=== PATIENT | male | born 1970 | race Caucasian/White ===

== ENCOUNTER 2016-07-29 20:54 | Inpatient (IN) | payer OTHER ==
[~2016-07-29] VITALS: Ht 180.3 cm; Wt 105.2 kg
--- NOTE | ~2016-07-29 | CON ---
PATIENT'S NAME: KAILEY BINGHAM [facility] AGE: 46 Y [address] ROOM: [address] [place], [place] [address] LOCATION: GPCU ADMIT DATE: 07/30/2016 Consultation DISCHARGE DATE: FAMILY PHYSICIAN: Festus Quintana MD ATTENDING PHYSICIAN: SORAYA REYES DATE OF CONSULTATION: 07/30/2016 REFERRING PHYSICIAN: Josh Fontana MD REASON FOR CONSULTATION: Acute diverticulitis with perforation. HISTORY OF PRESENT ILLNESS: Kailey is a 46-year-old male who was admitted to [facility] early this morning under the care of the hospitalist after a CT scan showed evidence of diverticulitis with perforation. The patient states that yesterday morning, he started having pain in the left lower quadrant. He placed a heat pack on this area. The pain became worse and he decided to come into be seen. The patient states that he has a prior history of diverticulitis being noted on a CT scan at the time of the kidney stone diagnosis. He states that he has had prior episodes where he would feel bloated and then the following day had pain and then the next day would seem to get better on its own. He has never gone into the clinic to be evaluated during these episodes and therefore he has never been on antibiotics for diverticulitis. At this time, the patient states that the pain is less if he sits and relaxes. The pain is significantly worse if he tries to get up and move. He states that he did have bowel movement yesterday which he describes as being ropey, but no blood. No bowel movement today. He is not passing any gas today. He states that he still feels bloated. He denies any fevers. The patient denies any history of inflammatory bowel disease. Denies ever having a colonoscopy in the past. PAST MEDICAL HISTORY: ALLERGIES: NONE. MEDICATIONS: 1. Vitamin D 3, 5000 units 2 tablets p.o. daily. 2. Ibuprofen 800 mg p.o. p.r.n. mild pain. 3. Tylenol 650 mg p.o. every 4 hours p.r.n. pain. ILLNESSES: 1. History of kidney stone 2013. 2. History of a heart murmur as a child with no recent issues. PATIENT'S NAME: KAILEY BINGHAM [facility] AGE: 46 Y [address] ROOM: [id number] [place], [place] [address] LOCATION: GPCU ADMIT DATE: 07/30/2016 Consultation DISCHARGE DATE: FAMILY PHYSICIAN: Festus Quintana MD ATTENDING PHYSICIAN: SORAYA REYES OPERATIONS: Right inguinal hernia repair at approximate age of 16. SOCIAL HISTORY: The patient is engaged to be . He lives in [place]. He works at [employer]. He is a nonsmoker. Consumes 2 alcoholic beverages per night. FAMILY HISTORY: Maternal grandmother had colon cancer. Father with leukemia. Sister had cardiac valve replacement. REVIEW OF SYSTEMS: The patient states that he had been doing well with diet and exercise and has lost some weight, but he has gained weight back. He had an upper respiratory infection in May, but has not had any recent problems. No shortness of breath. No cough. No history of asthma. No chest pain or history of any heart problems. He does have issues with heartburn. His bowels have been working normally prior to this. Denies any blood in his stool. Denies any problems urinating. PHYSICAL EXAMINATION: VITAL SIGNS: Temperature was 100.4, blood pressure 144/76, pulse 98, respirations 20. GENERAL: A 46-year-old male who is alert, oriented, pleasant, cooperative, in mild distress. EYES, EARS, NOSE, AND THROAT: Grossly normal. LUNGS: Clear. HEART: Regular, although mild tachycardic while I am in the room with heart rate of about 110. ABDOMEN: Bowel sounds are present. Abdomen is soft and nontender in the right lower quadrant, but very tender in the left lower quadrant with localized peritoneal signs. DIAGNOSTIC DATA: Lab work today; white blood cell count 13.5 compared to 13.9 last night. Hemoglobin is 14.3, hematocrit 41.8, platelets 184. Sodium 138, potassium 3.9, chloride 103, CO2 25, BUN 8, creatinine 1.1, glucose 119, lactate 1.6. LFTs were within normal limits. Urinalysis was within normal limits. Procalcitonin was 0.37. CRP was 9.20. CT scan read by Alvina shows prominent inflammatory changes adjacent to the diverticula within the sigmoid colon. Pneumoperitoneum was present. No evidence for an abscess. Review of CT scan from 2013 did show a focal area of luminal narrowing with adjacent pericolonic inflammatory changes at the PATIENT'S NAME: KAILEY BINGHAM [facility] AGE: 46 Y [address] ROOM: [id number] [place] [id number] LOCATION: GPCU ADMIT DATE: 07/30/2016 Consultation DISCHARGE DATE: FAMILY PHYSICIAN: Festus Quintana MD ATTENDING PHYSICIAN: SORAYA REYES junction between descending colon and sigmoid colon with no complications at that time. ASSESSMENT: A 46-year-old male with perforated diverticulitis with localized peritonitis in the left lower quadrant on IV Cipro and Flagyl. PLAN: I discussed the diagnosis with the patient. I discussed conservative treatment at this time with bowel rest and IV antibiotics. I anticipate that his symptoms should improve within 48-72 hours and if he indeed improves as expected then I would anticipate that he would be able to go home with oral antibiotics at that time. I discussed that if he becomes worse clinically then we may need to proceed with an emergent operation that would include colon resection with colostomy. I discussed the need for colonoscopy in 6-8 weeks to ensure that this is truly as a result of diverticulitis but not anything more concerning like a cancer or colitis. I also briefly discussed potential for elective an operation in the future if he has ongoing issues with diverticulitis. The patient's questions and concerns were addressed. Dr. Fontana will be evaluating the patient momentarily and will review over the CT scan images. He will examine the patient and will be involved in the final assessment and plan. KAYLEE ORTEGA PA-C FOR MD RICCI MEL[place]AR/trey /[id number] d: 07/30/16 08 t: 08/08/16 1742, CONSULTATION REPORT
--- NOTE | ~2016-07-29 | ER ---
PATIENT'S NAME: ZACHERY [facility] AGE: 46 Y [address] ROOM: [place] [id number] LOCATION: GPCU ADMIT DATE: 07/30/2016 ER/Outpatient Report DISCHARGE DATE: FAMILY PHYSICIAN: Festus Quintana MD ATTENDING PHYSICIAN: SORAYA REYES Admission date and time documented in medical record. I saw the patient at 2205 hours. CHIEF COMPLAINT: Left lower quadrant abdominal pain. HISTORY OF PRESENT ILLNESS: The patient is a 46-year-old male, who presented to the emergency room by private vehicle. The patient has had left lower quadrant abdominal pain since 0100 hours today. He has had intermittent sharp pain with spasm, some nausea, but no vomiting. No diarrhea. He has had a couple small stools today. No blood in his stool. No chest pain or shortness of breath. No lightheadedness, dizziness, syncope, or near syncope. No headache, eyes, ears, nose, throat, neck, or spine pain. No fall or trauma. No recent coughs, colds, flus, fever, chills, or sweats. No joint muscle swelling, redness, or pain. No skin eruptions or rash. No history of endocrine problems or neuro changes. He does have some depression and anxiety. He does have a past history of kidney stones, diverticulosis and diverticulitis. HOME MEDICATIONS: See attached medication list. ALLERGIES: NONE. SOCIAL HISTORY: Nonsmoker for 2 years. Nondrinker. SIGNIFICANT PAST MEDICAL HISTORY: 1. Nephrolithiasis. 2. Diverticulosis. 3. Diverticulitis. 4. Depression. 5. Anxiety. OPERATIONS: Herniorrhaphy. REVIEW OF SYSTEMS: PATIENT'S NAME: ZACHERY [facility] AGE: 46 Y [address] ROOM: [address] [address] LOCATION: GPCU ADMIT DATE: 07/30/2016 ER/Outpatient Report DISCHARGE DATE: FAMILY PHYSICIAN: Festus Quintana MD ATTENDING PHYSICIAN: SORAYA REYES All systems reviewed by me are negative with the exception of those discussed in the history of present illness. PHYSICAL EXAMINATION: VITAL SIGNS: Temperature 99.4 tympanic, pulse 98, respirations 24, blood pressure 153/88, O2 saturation on room air is 100%. HEAD: Normocephalic. EYES, EARS, NOSE, THROAT: Clear. Mucous membranes moist. Teeth, jaw intact. NECK: No nuchal rigidity. No thyromegaly or cervical lymphadenopathy. No tenderness. SPINE: Nontender. No deformity. LUNGS: Clear. Good air flow. No rales, rhonchi, or wheezes. HEART: Regular. Pulses are palpable. No chest wall or ribcage pain to palpation. ABDOMEN: Nondistended. Soft. Tender right lower quadrant. Some guarding rigidity. Some mild rebound tenderness. No organomegaly or abnormal masses palpable. Minimal bowel tones. No CVA tenderness. EXTREMITIES: Intact. Neurovascularly intact. SKIN: Clear. No skin eruptions or rash. LABORATORY DATA: [place] [address], 84 segs, 10 lymphs, 6 monos, hemoglobin 15.6, hematocrit 45.1, platelet count is 221785. Sedimentation rate is normal at 8. CMS was normal except for a slightly elevated glucose 108. CRP was elevated 9.2. Urinalysis was clear. IMAGING: Three-view abdominal x-ray showed no perforation, obstruction, or acute lung infiltrate. We will review x-ray with radiologist. CT scan of the abdomen and pelvis with IV contrast showed a perforated diverticulitis of the sigmoid colon. No abscess. There was also 4 mm nonobstructive left intrarenal stone. CT scan was read by Radiology, see dictated transcribed report. EMERGENCY DEPARTMENT COURSE: I did give the patient IV normal saline, fluids, given Dilaudid for pain, Zofran for nausea and vomiting. I started him on Cipro 400 mg IV in the emergency room and Flagyl 500 mg IV in the emergency room. I did discuss the patient with Dr. Reyes, hospitalist. We will admit the patient to PCU telemetry. IMPRESSION: 1. Left lower quadrant abdominal pain secondary to perforated diverticulitis of the sigmoid colon. 2. Anxiety. PATIENT'S NAME: KAILEY BINGHAM [facility] AGE: 46 Y [address] ROOM: [id number] [place] [id number] [facility] ADMIT DATE: 07/30/2016 ER/Outpatient Report DISCHARGE DATE: FAMILY PHYSICIAN: Festus Quintana MD ATTENDING PHYSICIAN: SORAYA REYES 3. Depression. 4. History of nephrolithiasis. PLAN: The patient will be admitted to U telemetry for further evaluation and treatment. Discussion ensued with the patient concerning my findings and recommendations, he understands. The patient will be admitted by Dr. Reyes, hospitalist to [facility] telemetry. MD BRANDIE TADEO/trey /[id number] d: 07/30/16 0236 t: 07/30/16 1804, OUTPATIENT REPORT
--- NOTE | ~2016-07-29 | DS ---
PATIENT'S NAME: KAILEY BINGHAM [facility] AGE: 46 Y [address] ROOM: [place] [address] LOCATION: GPED ADMIT DATE: 07/30/2016 Discharge Summary DISCHARGE DATE: 08/03/2016 FAMILY PHYSICIAN: Festus Quintana MD ATTENDING PHYSICIAN: Bari Silva PRIMARY DIAGNOSES: 1. Systemic inflammatory response syndrome. 2. Acute diverticulitis with microperforation. 3. Left nephrolithiasis. 4. Generalized anxiety. OPERATIONS OR PROCEDURES: None. HISTORY OF PRESENTING ILLNESS AND REASON FOR ADMISSION: Please refer to the H and P dictated by Dr. Silva on 07/30/2016. HOSPITAL COURSE: The patient was admitted to the hospital as noted above with a presumptive diagnosis of acute diverticulitis. There was evidence of perforation based on initial imaging studies. General Surgery was consulted. He was treated with broad-spectrum antibiotic therapy and supportive cares. His clinical condition was stable. There was no evidence for sepsis; however, he did show evidence for systemic inflammatory response syndrome. Pain was managed with opioid analgesic therapy and this was gradually titrated off. He was eventually switched to an oral analgesic regimen and tolerated that well. On the third hospital day, his diet was reintroduced and subsequently advanced. He was ambulating independently, tolerating a regular diet, and stooling and voiding without any problems. General Surgery did continue to follow him over the course of his hospital stay and felt that no operative intervention was warranted. By the end of the 4th day of his hospital stay, it was felt that he would be stable enough for discharge to home with plans for clinical followup with his primary care provider as well as outpatient followup with Dr. Fontana. DISCHARGE INSTRUCTIONS: DIET: Regular as tolerated. Encourage high-fiber and avoid processed foods. ACTIVITY: As tolerated. DISCHARGE MEDICATIONS: 1. Ibuprofen 800 mg p.o. q.8 hours p.r.n. pain. 2. Acetaminophen 650 mg p.o. q.4 hours p.r.n. pain. PATIENT'S NAME: KAILEY BINGHAM [facility] AGE: 46 Y [address] ROOM: [place] [address] LOCATION: GPED ADMIT DATE: 07/30/2016 Discharge Summary DISCHARGE DATE: 08/03/2016 FAMILY PHYSICIAN: Festus Quintana MD ATTENDING PHYSICIAN: Bari Silva 3. Vitamin D3 10,000 units p.o. daily. 4. Ciprofloxacin 500 mg p.o. b.i.d. x7 more days. 5. Flagyl 500 mg p.o. t.i.d. x7 more days. 6. [place] 5/325 one tablet p.o. q.4 hours p.r.n. pain. FOLLOWUP: He will follow up with Dr. Quintana in 5 to 7 days. He will follow up with Dr. Fontana in 2 weeks. CONDITION ON DISCHARGE: Good. Total time spent on discharge process 45 minutes. MD RAMON TOWNSEND/trey /[id number] d: 08/17/16 0348 t: 08/29/16 2144, DISCHARGE SUMMARY
--- NOTE | ~2016-07-29 | HP ---
PATIENT'S NAME: KAILEY BINGHAM [facility] AGE: 46 Y [address] ROOM: [address] [place] [address] LOCATION: [facility] ADMIT DATE: 07/30/2016 History & Physical DISCHARGE DATE: FAMILY PHYSICIAN: Festus Quintana MD ATTENDING PHYSICIAN: SORAYA REYES DATE OF SERVICE: CHIEF COMPLAINT: Left lower quadrant abdominal pain. HISTORY OF PRESENT ILLNESS: This is a 46-year-old male with history of diverticulosis and history of flare- ups with diverticulitis, who came in to the emergency room of [facility] yesterday with a complaint of sudden onset of left lower quadrant pain, which started at 1:00 a.m. on Saturday morning. He reported that with the onset of the pain, he knew that his diverticulosis was about to act up. He reported that it was sharp to burning with a severity of 4 to 5 out of 10, located at his left lower quadrant, and as the day progressed, the pain got worse with no nausea or vomiting. He took some ibuprofen and Tylenol, which did not help with the pain, and so decided to bring the patient into the ER late last night. He reported that last time he had a flare up was April last year, though he did not seek medical attention as it wore off at home without any antibiotics. He denies fever. Denies loss of appetite. Denies chills. Denies diarrhea. He reported that since the onset of the pain, he has had one bowel movement, which was not watery. Denies headache. Denies neck pain. He notes some lower back pain, which he attributes to likely probably radiation of the left lower quadrant pain to his back. REVIEW OF SYSTEMS: The 13 elements of review of systems were asked and as documented in the HPI. The others are negative. PAST MEDICAL HISTORY: Includes anxiety, depression, diverticulosis. PAST SURGICAL HISTORY: Includes hernia repair. SOCIAL HISTORY: Lives with his . Stopped chewing tobacco 5 years ago, chewed for about 20 years, one can for 2 days. Drinks alcohol, 2 beer every day. Last drink was on Saturday. FAMILY HISTORY: PATIENT'S NAME: ZACHERY [facility] AGE: 46 Y [address] ROOM: [address] [place], [place] [address] LOCATION: [facility] ADMIT DATE: 07/30/2016 History & Physical DISCHARGE DATE: FAMILY PHYSICIAN: Festus Quintana MD ATTENDING PHYSICIAN: SORAYA REYES Mother is at the age of 73, has no medical problem. Father at an early age of 33 from leukemia. PHYSICAL EXAMINATION: VITAL SIGNS: In PCU, temperature 100.4, respiratory rate 16, saturation 93% on room air, blood pressure 156/87, heart rate 110. GENERAL: Reveals a young male, who is alert, awake, oriented x3, in mild painful discomfort. NEUROLOGIC: Cranial 2 through 12 are intact bilaterally. Sensory is intact bilaterally. Power is 5/5 in all the extremities. HEENT: Normocephalic, atraumatic. Pupils are equal and reactive to light bilaterally. Pharynx is normal. Mucosa is slightly dry. Ear, no obvious ear discharge or drainage. NECK: Supple. No area of tenderness. No lymphadenopathy. CARDIOVASCULAR SYSTEM: Normal S1 and S2, tachycardia. CHEST: Clear to auscultation bilaterally. ABDOMEN: Soft. Nondistended. Generalized tenderness. Mild guarding in the lower quadrant. Decreased bowel sounds. EXTREMITIES: There is no joint swelling or erythema or tenderness. SKIN: No rash or skin breakdown. LABORATORY DATA: WBC 13.9, H and H are 15.6 and 45.1, platelets 223. Sodium 137, creatinine 1.1. BUN 9, glucose 108, potassium 3.8, chloride 103, CO2 of 27, calcium 8.6. Liver function tests within normal limit. ESR 8. UA: Leukocytes negative, nitrite negative. CRP 9.2. Neutrophil differential 83%. CT of the abdomen per report from Dr. Obrien, perforated diverticulitis, official report is still pending. ASSESSMENT AND PLAN: This is a 46-year-old male with sudden onset of left lower quadrant pain. 1. Systemic inflammatory response syndrome, present on admission, secondary to perforated diverticulitis. We will do blood cultures x1 set, also check procalcitonin. 2. Left lower quadrant pain, present on admission. Pain management is going to be with morphine. We will try this. The patient was given Dilaudid in the ER. If morphine does not help, we will titrate upward. 3. Perforated diverticulitis. We will continue the patient on Flagyl and Cipro. We will get a General Surgery consult in the morning. We will keep the patient n.p.o. 4. Anxiety, stable. 5. Depression, stable. Not on medications. The line of management was explained to the patient and the . They do not have any questions at this time. PATIENT'S NAME: KAILEY BINGHAM [facility] AGE: 46 Y [address] ROOM: [place] [address] LOCATION: [facility] ADMIT DATE: 07/30/2016 History & Physical DISCHARGE DATE: FAMILY PHYSICIAN: Festus Qiuntana MD ATTENDING PHYSICIAN: SORAYA REYES SORAYA REYES MD ODO/modl /[id number] D: [id number] T: [id number] HISTORY & PHYSICAL
[2016-07-29 22:10] LABS: BILIRUBIN URINE NEGATIVE (NEGATIVE); BLOOD URINE NEGATIVE /UL (NEGATIVE); COLOR URINE YELLOW (YELLOW); GLUCOSE URINE NEGATIVE (NEGATIVE); KETONE URINE NEGATIVE (NEGATIVE); LEUKOCYTES URINE NEGATIVE /UL (NEGATIVE); NITRITE URINE NEGATIVE (NEGATIVE); PH URINE 6.5 (4.0-8.0); PROTEIN URINE NEGATIVE (NEGATIVE); TURBIDITY URINE CLEAR (CLEAR); UROBILINOGEN URINE NORMAL (NORMAL)
[2016-07-29 22:31] LABS: BASOPHIL # 0.1 K/uL (0.0-0.2); BASOPHIL % 0.4 %; EOSINOPHIL % 0.1 %; HEMATOCRIT 45.1 % (37.0-53.0); HEMOGLOBIN 15.6 g/dL (12.0-17.0); IMMATURE GRANULOCYTE # 0.1 K/uL (0.0-0.3); IMMATURE GRANULOCYTE % 0.4 %; LYMPHOCYTE # 1.4 K/uL (0.8-4.0); LYMPHOCYTE % 9.8 %; MCH 30.2 pg (27.0-34.0); MCHC 34.6 gm/dL (32.0-36.5); MCV 87.4 fl (83.0-98.0); MONOCYTE # 0.8 K/uL (0.0-1.0); MONOCYTE % 5.6 %; MPV 10.1 fl (9.4-12.4); NEUTROPHIL # (ANC) 11.7 K/uL (1.4-9.0); NEUTROPHIL % 83.7 %; NRBC % 0 /100WBC (0-0.00); PLATELET COUNT 223 K/uL (150-450); RBC 5.16 M/uL (4.00-6.00); RDW-CV 13.2 % (11.9-14.6); WBC 13.9 K/uL (4.0-11.0)
[2016-07-29 22:47] LABS: ALBUMIN 4.4 gm/dL (3.5-5.0); ALK PHOS 59 IU/L (33-138); ALT 72 IU/L (12-78); ANION GAP 10.8 (10.0-19.0); AST 29 IU/L (10-40); BLOOD UREA NITROGEN 9 mg/dL (6-24); CALCIUM 8.6 mg/dL (8.5-10.5); CHLORIDE 103 mMol/L (96-110); CO2 27 mMol/L (22-32); CREATININE 1.1 mg/dL (0.6-1.3); ESTIMATED GFR (MDRD EQUATION) > 60; POTASSIUM 3.8 mMol/L (3.7-5.1); SODIUM 137 mMol/L (135-145); TOTAL BILIRUBIN 1.2 mg/dL (0.0-1.5)
[2016-07-30] MEDS ORDERED: VITAMIN D35000 UNI1 PO (01:35)
[2016-07-30] MEDS ORDERED: IBUPROFEN200 M1 PO (01:37)
[2016-07-30] MEDS ORDERED: TYLENOL325 MG PO (01:38)
--- NOTE | 2016-07-30 02:45 | NUR ---
Patient is a 46 y/o male. Admitted for perforated diverticulitis per Hospitalist. Patient presented to the ER with c/o lower abdominal since 07/29/16 around 0100, took ibuprofen at home with no relief and final came to the ER on 07/30 in the evening. IV ATB started in the ER and completed on PCU. VSS on admission. Morphine ordered for pain. NPO. General surgery consult in the AM. NKDA. PMH of hernia repair, anxiety, kidney stones, and diverticulitis. Home medications include vitamin D, multivitamin, tylenol, and ibuprofen.
[2016-07-30 03:06] LABS: BASOPHIL % 0.3 %; EOSINOPHIL % 0.1 %; HEMATOCRIT 41.8 % (37.0-53.0); HEMOGLOBIN 14.3 g/dL (12.0-17.0); IMMATURE GRANULOCYTE # 0.1 K/uL (0.0-0.3); IMMATURE GRANULOCYTE % 0.4 %; LYMPHOCYTE # 1.1 K/uL (0.8-4.0); LYMPHOCYTE % 7.9 %; MCH 29.9 pg (27.0-34.0); MCHC 34.2 gm/dL (32.0-36.5); MCV 87.4 fl (83.0-98.0); MONOCYTE # 0.8 K/uL (0.0-1.0); MPV 9.8 fl (9.4-12.4); NEUTROPHIL # (ANC) 11.6 K/uL (1.4-9.0); NEUTROPHIL % 85.3 %; NRBC % 0 /100WBC (0-0.00); PLATELET COUNT 184 K/uL (150-450); RBC 4.78 M/uL (4.00-6.00); RDW-CV 13.4 % (11.9-14.6); WBC 13.5 K/uL (4.0-11.0)
[2016-07-30 03:18] LABS: ANION GAP 13.9 (10.0-19.0); BLOOD UREA NITROGEN 8 mg/dL (6-24); CALCIUM 8.1 mg/dL (8.5-10.5); CHLORIDE 103 mMol/L (96-110); CO2 25 mMol/L (22-32); CREATININE 1.1 mg/dL (0.6-1.3); ESTIMATED GFR (MDRD EQUATION) > 60; MAGNESIUM 1.9 mg/dL (1.3-2.6); PHOSPHORUS 3.2 mg/dL (2.5-4.9); POTASSIUM 3.9 mMol/L (3.7-5.1); SODIUM 138 mMol/L (135-145)
--- NOTE | 2016-07-30 04:59 | NUR ---
Significant Event:A/Ox3. VSS. Low grade temp 100.4 ^ 99.4. NPO for possible surgery. to be consulted this AM. No PRN pain medications given. PIV to R)wrist infusing D5NS @ 100ml/h. IV ATB initated. Follow up:Continue to monitor.
--- NOTE | 2016-07-30 12:42 | NUR ---
Introduced self and care management services to patient and girlfriend at bedside. Lives in [place]. Denies concerns about going home on discharge, denies needs. Independent. Crusher will follow.
--- NOTE | 2016-07-30 19:23 | NUR ---
Significant Event: TEMP THIS AM OF 100.3. MORPHINE 2MG IVP GIVEN WITH NO RELIEF. ORDERS TO GIVE FENTANYL AND ACETAMINOPHEN IV PRN WITH PAIN ON SCALE DROPPING FROM 7 TO 4 ON SCALE. THIS AFTERNOON, PATIENT HAD POSSIBLE REACTION TO FENTANYL DOSE. MS 4MG GIVEN AT 1645 AND TYLENOL IV AGAIN AT 1700 WITH PATIENT RESTING COMFORTABLY. OTHER VSS. AMBULATES TO BATHROOM AND UP IN ROOM AD ESTELLA WITH FAMILY AT SIDE. D5NS AT 100ML/HR VIA R) HAND PIV. IV ATB CONTINUED SCHEDULED. ICE CHIPS ONLY AND TOLERATING OK. VOIDS PER BATHROOM WITH NO BM. Follow up: CONTINUE TO MANAGE WITH PAIN MEDS, IVF AND IV ATB.
--- NOTE | 2016-07-31 03:28 | NUR ---
Significant Event: A/0X3. UP AB ESTELLA IN ROOM. RESTING IN CHAIR. HAD A SLIGHT TEMP OF 100.0- 99.5. VSS ON RA. STILL HAVING LL QUADRANT ABD PAIN. GAVE MORPHINE X3. LAST DOSE WAS AT 0111. ALSO GAVE IV TYLENOL. LAST DOSE WAS AT 2302. PATIENT WAS ABLE TO FIND SOME RELIEF AND REST COMFORTABLY THROUGHOUT THE SHIFT. IV TO R) WRIST WITH D5 1/2 NS @ 100 ML/H. VOIDS FINE. NO BM THIS SHFIT. Follow up: CONTINUE WITH PLAN OF CARE.
[2016-07-31 04:33] LABS: BASOPHIL # 0.1 K/uL (0.0-0.2); BASOPHIL % 0.5 %; EOSINOPHIL # 0.1 K/uL (0.0-0.5); EOSINOPHIL % 0.6 %; HEMATOCRIT 38.9 % (37.0-53.0); HEMOGLOBIN 13.1 g/dL (12.0-17.0); IMMATURE GRANULOCYTE # 0.1 K/uL (0.0-0.3); IMMATURE GRANULOCYTE % 0.5 %; LYMPHOCYTE # 1.3 K/uL (0.8-4.0); LYMPHOCYTE % 12.1 %; MCH 30.3 pg (27.0-34.0); MCHC 33.7 gm/dL (32.0-36.5); MCV 89.8 fl (83.0-98.0); MONOCYTE # 0.9 K/uL (0.0-1.0); MONOCYTE % 8.2 %; NEUTROPHIL # (ANC) 8.4 K/uL (1.4-9.0); NEUTROPHIL % 78.1 %; NRBC % 0 /100WBC (0-0.00); PLATELET COUNT 157 K/uL (150-450); RBC 4.33 M/uL (4.00-6.00); RDW-CV 13.5 % (11.9-14.6); WBC 10.7 K/uL (4.0-11.0)
[2016-07-31 04:49] LABS: ANION GAP 11.6 (10.0-19.0); BLOOD UREA NITROGEN 7 mg/dL (6-24); CHLORIDE 106 mMol/L (96-110); CO2 25 mMol/L (22-32); ESTIMATED GFR (MDRD EQUATION) > 60; POTASSIUM 3.6 mMol/L (3.7-5.1); SODIUM 139 mMol/L (135-145)
--- NOTE | 2016-07-31 18:21 | NUR ---
VITAL SIGNS STABLE, AFEBRILE. MS IV TOTAL 16MG THIS SHIFT. UP AND AMBULTED IN BOOKER X3. DIET ADVANCED TO CLEAR LIQUIDS. UP AD ESTELLA. TOLERATES CLEAR LIUIDS. COMPLAINS OF BLOATING, INSTRUCTED TO TAKE LIQUIDS SLOWLY PER DR. SIERRA. BOWEL SOUNDS HYPOACTIVE. IVF AND IV ANTIBIOTICS CONTINUE. STATES PAIN IS MORE LOCALIZED INSTEAD OF ACROSS ENTIRE ABDOMEN. FOLLOW UP: CONTINUE PLAN OF CARE. CONTINUE TO MONITOR PAIN, AM LABS.
--- NOTE | 2016-07-31 18:56 | NUR ---
I HAVE REVIEWED THE CHARTING OF FILIBERTO VARMA AND I AGREE WITH IT.
[2016-08-01 03:37] LABS: BASOPHIL # 0.1 K/uL (0.0-0.2); BASOPHIL % 0.8 %; EOSINOPHIL # 0.4 K/uL (0.0-0.5); EOSINOPHIL % 4.3 %; HEMATOCRIT 37.2 % (37.0-53.0); HEMOGLOBIN 12.6 g/dL (12.0-17.0); IMMATURE GRANULOCYTE % 0.3 %; LYMPHOCYTE # 1.4 K/uL (0.8-4.0); LYMPHOCYTE % 15.6 %; MCH 30.2 pg (27.0-34.0); MCHC 33.9 gm/dL (32.0-36.5); MCV 89.2 fl (83.0-98.0); MONOCYTE # 0.7 K/uL (0.0-1.0); MONOCYTE % 7.4 %; NEUTROPHIL # (ANC) 6.3 K/uL (1.4-9.0); NEUTROPHIL % 71.6 %; NRBC % 0 /100WBC (0-0.00); PLATELET COUNT 174 K/uL (150-450); RBC 4.17 M/uL (4.00-6.00); RDW-CV 13.5 % (11.9-14.6); WBC 8.8 K/uL (4.0-11.0)
--- NOTE | 2016-08-01 05:15 | NUR ---
Significant Event: A/0X3. RESTED IN RECLINER ALL NIGHT. UP AB ESTELLA IN ROOM. SLIGHT TEMP OF 99.2 BUT AFEBRILE SINCE. VSS ON RA. STILL HAVING 6/10 LLL QUDRANT ABD PAIN. MORPHINE GIVEN X5. LAST DOSE WAS AT 0522. PATIENT WAS ABLE TO FIND SOME RELIEF AND REST COMFORTABLY. ALSO APPLIED KPAD TO ABD WHICH PATIENT STATES HELPED. IV TO R) WRIST WITH D5 1/2 NS @ 100 ML/H. CONTINUE WITH IV ANTIBIOTICS. VOIDED FINE. NO BM THIS SHIFT. Follow up: CONTINUE [facility] PLAN OF CARE.
--- NOTE | 2016-08-01 13:05 | NUR ---
PT WAS TX TO MSU/PEDS AND REPORT GIVEN TO PRIMARY RN BY PHONE AND AT BEDSIDE P TX TO HIS ROOM #[id number].
--- NOTE | 2016-08-01 13:18 | NUR ---
I HAVE REVIEWED THE CHARTING OF STUDENT NURSE WILLIAM HILL AND I AGREE WITH IT.
--- NOTE | 2016-08-01 15:42 | NUR ---
Met with patient and his mom as he sat in the recliner today. Introduced myself and explained my role with the CM department. He states that he is doing well since transferring to PEDS. He states he does not anticipate having any discharge needs. He plans to return home and care for himself once discharged. Will continue to follow and offer supports as needed.
--- NOTE | 2016-08-02 04:03 | NUR ---
Significant Event:PT AAOX3.PLESANT AND COROPERATIVE WITH CARES.WALKS IN BOOKER X3.DENIES PAIN WHEN ASKED. VSS. IV TO RIGHT HAND RUNNING AT 100ML/HR. SHOWER TAKEN THIS EVENING. UP AD ESTELLA GAIT STEADY. BOWEL SOUNDS ACTIVE X4 QUADRANTS STATES HE IS PASSING GAS AND DID HAVE MODERATE FORMED BM. Follow up:
[2016-08-02 06:08] LABS: BASOPHIL # 0.1 K/uL (0.0-0.2); BASOPHIL % 0.9 %; EOSINOPHIL # 0.2 K/uL (0.0-0.5); EOSINOPHIL % 3.5 %; HEMATOCRIT 38.7 % (37.0-53.0); HEMOGLOBIN 13.2 g/dL (12.0-17.0); IMMATURE GRANULOCYTE # 0.1 K/uL (0.0-0.3); IMMATURE GRANULOCYTE % 0.8 %; LYMPHOCYTE # 1.4 K/uL (0.8-4.0); LYMPHOCYTE % 21.2 %; MCH 30.2 pg (27.0-34.0); MCHC 34.1 gm/dL (32.0-36.5); MCV 88.6 fl (83.0-98.0); MONOCYTE # 0.6 K/uL (0.0-1.0); MONOCYTE % 9.2 %; MPV 9.5 fl (9.4-12.4); NEUTROPHIL # (ANC) 4.3 K/uL (1.4-9.0); NEUTROPHIL % 64.4 %; NRBC % 0 /100WBC (0-0.00); RBC 4.37 M/uL (4.00-6.00); RDW-CV 13.2 % (11.9-14.6); WBC 6.6 K/uL (4.0-11.0)
[2016-08-02 06:09] LABS: PLATELET COUNT 244 K/uL (150-450)
[2016-08-02 06:24] LABS: ANION GAP 12.7 (10.0-19.0); BLOOD UREA NITROGEN 8 mg/dL (6-24); CALCIUM 8.7 mg/dL (8.5-10.5); CHLORIDE 108 mMol/L (96-110); CO2 25 mMol/L (22-32); CREATININE 0.9 mg/dL (0.6-1.3); ESTIMATED GFR (MDRD EQUATION) > 60; POTASSIUM 3.7 mMol/L (3.7-5.1); SODIUM 142 mMol/L (135-145)
--- NOTE | 2016-08-02 14:35 | NUR ---
Significant event: Patient is alert and oriented x3. VSS, on room air. IV to right hand, saline locked. Ambulating in suggs independently. Is on regular diet now and is tolerating well. Still passing gas, no bm's this shift. Still having left lower quad tenderness, especially with palpation. Has had no pain medications since yesterday morning. Plan is to finish IV antibiotics today and go home tom[place] on oral meds. Cooperative with cares.
--- NOTE | 2016-08-03 04:23 | NUR ---
Significant Events: Patient alert and oriented X4. Up ad jackeline in room. Intermittent SEAMUS to R) hand. Has IV flagyl and cipro. New bag and tubing hung. Patient voided X2 and walked in halls X3. On regular diet. Passing gas. Denies pain or nausea. Took in 600 oral. Ate 100% of supper. Slept well this shift. Plan is to go home on oral antibiotics today if Dr. Fontana clears patient. Did not go home yesterday because of abdominal tenderness and MD wanted patient to have one more day of IV antibiotics.
[2016-08-03] MEDS ORDERED: FLAGYL500 MG PO (11:39)
[2016-08-03] MEDS ORDERED: CIPRO500 MG PO (11:39)
[2016-08-03] MEDS ORDERED: NORCO 5-325 TA1 EACH PO (11:42)
--- NOTE | 2016-08-03 12:25 | NUR ---
A&O. VSS. NO C/O PAIN. AMB IN HALLS. VD'S. NO BM. [place] REG DIET. INT IV ATBX SWITCH TO PO AND HOME. DC IV UPON DISMISSAL. INSTRUCTIONS REVIEWD. AMB TO PRIVATE VEHICLE HOME.
== END 2016-08-03 12:29 | disposition disaster alternative care site (69) | DRG 392 ==
LOC: GMED 20:54 → GPCU 07-30 00:47 → GPED 07-30 00:47 → GPCU 07-30 00:47 → GPED 08-01 14:48
PROVIDERS: Emergency Medicine; Family Medicine; Nurse Practitioner Family; ADMIT Hospitalist
DX: K57.20 Diverticulitis of large intestine with perforation and abscess without bleeding (principal); N20.0 Calculus of kidney; F41.9 Anxiety disorder, unspecified; Z87.891 Personal history of nicotine dependence
CPT/HCPCS: J0131; J0744; J1170; J1644; J2270; J2405; J3010; J3480; J7030; J7042; J7050; Q9967